=== PATIENT | female | born 1955 | race Caucasian/White ===

== ENCOUNTER → 2021-02-23 | Outpatient (CLI) | payer OTHER ==
[~2021-02-23] MED LIST: ANUSOL HC SUPP1 SUPP PR; CLONAZEPAM1 MG PO; LAMICTAL TAB 2525 MG PO; LEXAPRO10 MG PO; PROBIOTIC1 EAC3 PO; PROTONIX20 MG PO; SYNTHROID100 MCG PO; TOPROL XL25 MG PO
== END ==
LOC: KOH-I 14:30
DX: R22.1 Localized swelling, mass and lump, neck (principal); K11.5 Sialolithiasis
CPT/HCPCS: 76536

== ENCOUNTER → 2021-05-07 | Outpatient (CLI) | payer OTHER | LOC: KOH-I 11:05 | DX: R22.1 Localized swelling, mass and lump, neck (principal) | CPT/HCPCS: 76536 ==

== ENCOUNTER → 2021-11-04 | Outpatient (CLI) | payer MEDICARE, OTHER | LOC: KOH-I 10-26 10:30 | DX: R22.1 Localized swelling, mass and lump, neck (principal) | CPT/HCPCS: 76536 ==

== ENCOUNTER → 2021-11-04 | Outpatient (CLI) | payer MEDICARE, OTHER ==
[2021-11-04 13:36] LABS: HEMOGLOBIN 14.5 gm/dl (12.3-15.3); RED BLOOD COUNT 4.6 M/UL (4.00-5.10); WHITE BLOOD COUNT 6.7 K/UL (4.5-11.0)
[2021-11-04 13:57] LABS: BUN/CREATININE RATIO 13 (0-10)
== END ==
LOC: LAB 12:56
PROVIDERS: Psychiatry & Neurology Clinical Neurophysiology
DX: G40.209 Localization-related (focal) (partial) symptomatic epilepsy and epileptic syndromes with complex partial seizures, not intractable, without status epilepticus (principal)
CPT/HCPCS: 36415; 80053; 85025